=== PATIENT | female | born 1975 | race Caucasian/White ===

== ENCOUNTER 2018-10-10 22:17 | Emergency (ER) | payer BC, MEDICARE ==
[~2018-10-10] VITALS: Ht 162.6 cm; Wt 61.1 kg
[2018-10-10] MEDS ORDERED: DEXT20CA4 PO (22:41)
[2018-10-10] MEDS ORDERED: VENL150C58 PO (22:41)
[2018-10-10] MEDS ORDERED: RIZA10TA28 PO (22:41)
--- NOTE | 2018-10-10 22:48 | NUR ---
Received report from MARILYN Vasquez. Patient placed in bed 24. 18 even respirations on room air. Appears to be in distress, possibly from being intoxicated. Noticed an open wound to right arch of the foot. Will treat it once patient is back to bed from bathroom. Explained admission process; patient verbalized understanding. Will continue to monitor.
[2018-10-10 23:20] LABS: URINE HCG NEGATIVE (NEG)
[2018-10-10 23:21] LABS: BASOPHILS % (AUTO) 0.2 % (0-1); EOSINOPHILS % (AUTO) 0 % (0-6); HEMATOCRIT 36.9 % (35.0-45.0); HEMOGLOBIN 12.5 g/dl (12.0-16.0); LYMPHOCYTES # (AUTO) 1.7 X10'3 (1.1-4.8); LYMPHOCYTES % (AUTO) 13.8 % (21-51); MEAN CORPUSCULAR HEMOGLOBIN 31.4 PG (27.0-31.0); MEAN CORPUSCULAR HGB CONC 33.7 g/dL (33.0-36.5); MEAN CORPUSCULAR VOLUME 93.2 FL (78-98); MONOCYTES # (AUTO) 0.5 X10'3 (0-0.9); MONOCYTES % (AUTO) 3.8 % (2-12); NEUTROPHILS # (AUTO) 10.1 X10'3 (1.8-7.7); NEUTROPHILS % (AUTO) 82.2 % (42-75); PLATELET COUNT 429 X10'3 (140-440); RED BLOOD COUNT 3.97 X10'6 (4.20-5.60); RED CELL DISTRIBUTION WIDTH 12.9 % (11.5-14.5); WHITE BLOOD COUNT 12.3 X10'3 (4.5-11.0)
[2018-10-10 23:21] LABS: CLARITY,URINE CLEAR (Clear); COLOR,URINE STRAW (Yellow); GLUCOSE, URINE NEGATIVE (Neg); KETONES,URINE NEGATIVE (Neg); LEUKOCYTE ESTERASE ,URINE NEGATIVE (Neg); NITRITES, URINE NEGATIVE (Neg); OCCULT BLOOD,URINE NEGATIVE (Neg); PROTEIN,URINE NEGATIVE (Neg); UROBILINOGEN,URINE 0.2 E.U/dL (0.2-1.0)
[2018-10-10 23:23] LABS: UA COLLECTION TYPE CLN CATCH MIDSTREAM
[2018-10-10 23:32] LABS: ALANINE AMINOTRANSFERASE 45 U/L (12-78); ALBUMIN/GLOBULIN RATIO 1.1 (1.1-1.5); ALKALINE PHOSPHATASE 57 IU/L (46-116); ANION GAP 6 (8-16); ASPARTATE AMINO TRANSFERASE 37 U/L (10-37); BILIRUBIN,TOTAL 0.2 MG/DL (0.1-1.0); BLOOD UREA NITROGEN 15 MG/DL (7-18); BUN/CREATININE RATIO 18.3 (6.6-38.0); CALCIUM 8.5 MG/DL (8.5-10.1); CHLORIDE 112 MMOL/L (99-107); CREATININE 0.82 MG/DL (0.40-0.90); GLUCOSE 101 MG/DL (70-104); SODIUM 146 MMOL/L (135-145); TOTAL CARBON DIOXIDE 27.6 MMOL/L (24-32); TOTAL PROTEIN 7.5 G/DL (6.4-8.2); eGFR 76 ML/MIN
[2018-10-10 23:34] LABS: URINE AMPHETAMINE SCREEN NEGATIVE (Neg); URINE BARBITUATE SCREEN NEGATIVE (Neg); URINE BENZODIAZEPINES SCREEN NEGATIVE (Neg); URINE CANNABINOID SCREEN NEGATIVE (Neg); URINE COCAINE SCREEN NEGATIVE (Neg); URINE METHADONE SCREEN NEGATIVE (Neg); URINE OPIATE SCREEN NEGATIVE (Neg); URINE PHENCYCLIDINE SCREEN NEGATIVE (Neg)
[2018-10-10 23:41] LABS: ETHANOL 0.244 GM/DL (0.0-0.010)
[2018-10-10 23:44] LABS: ACETAMINOPHEN < 2.0 UG/ML (10-30)
--- NOTE | 2018-10-11 00:20 | NUR ---
CLAUS Chavez examined wound and verbalized to irrigate it with 500 mL of sterile water, obtain x-ray, then apply xeroform, 4x4s and cover with coban. Now pictures taken; placed in chart. Will perform wound care per orders.
--- NOTE | 2018-10-11 00:43 | NUR ---
Xeroform, 4x4 gauze and coban dressing applied to open wounds on bottom of right foot.
--- NOTE | 2018-10-11 00:48 | NUR ---
Pt became agitated about "bloody spot" on pillow case. Began pacing around, security notified and arrived promptly. Situation deescalated by replacing linen and asking Pt to return to bed. Pt agreed to return to bed. Sitting up in bed facing wall, security still present on standby.
--- NOTE | 2018-10-11 01:18 | NUR ---
Pt up to bathroom to perform oral hygiene tasks. No assistance required.
--- NOTE | 2018-10-11 01:21 | NUR ---
Packet faxed to [facility]. Unable to confirm receipt of packet as out of business hours.
[2018-10-11] MEDS ORDERED: CIPR7.5D LEFT EAR (01:47)
[2018-10-11] MEDS ORDERED: AMOX-580 PO (01:47)
[2018-10-11] MEDS ORDERED: LEVO50TA8 PO (01:47)
[2018-10-11] MEDS ORDERED: ATOR20TA66 PO (01:47)
[2018-10-11] MEDS ORDERED: TRAZ-219 PO (01:47)
[2018-10-11] MEDS ORDERED: NORT50CA PO (01:47)
[2018-10-11] MEDS ORDERED: PANT40TA4 PO (01:47)
[2018-10-11] MEDS ORDERED: LORazepam 1 MG tablet PO ONE (01:50)
[2018-10-11] MEDS ORDERED: SUMAtriptan succ. 6 MG/0.5ml vial SQ ONE (02:55)
[2018-10-11 05:30] VITALS: BP 125/69
--- NOTE | 2018-10-11 05:53 | NUR ---
Patient up to bathroom. Dry-heaving at the moment. Cool wash rag given
[2018-10-11] MEDS ORDERED: venlafaxine XR 75mg capsule (Q24H) PO SCH (08:00)
[2018-10-11] MEDS ORDERED: DEXAMETH LEFT EAR SCH (08:00)
[2018-10-11] MEDS: CIPROFLOXACIN HCL LEFT EAR SCH ×3 (08:00→12:59)
[2018-10-11] MEDS ORDERED: pantoprazole 40mg Tablet.DR PO SCH (08:00)
[2018-10-11] MEDS ORDERED: levoTHYROXINE 25mcg tablet PO SCH (08:00)
[2018-10-11] MEDS ORDERED: nortriptyline 25mg capsule PO SCH (08:00)
[2018-10-11] MEDS ORDERED: CIPROFLOXACIN HCL LEFT EAR SCH (08:00)
[2018-10-11] MEDS: DEXAMETH LEFT EAR SCH ×3 (08:00→12:59)
--- NOTE | 2018-10-11 09:00 | NUR ---
BREAK NURSE: PT RESTING WITH EYES CLOSED RR EQUAL AND UNLABORED
[2018-10-11] MEDS ORDERED: amox tr/potassium clavulanate 875/125mg TAB PO SCH (10:00)
--- NOTE | 2018-10-11 12:59 | NUR ---
INFORMED PT THAT IT WAS TIME FOR HER ABX EAR GTTS. PT STATES THAT SHE SAW DR ROSE AND WAS TOLD TO STOP THE ABX EAR GTTS AND TO CONTINUE TAKING THE AMOXICILLIN. PT REFUSED THE ABX EAR GTTS AT THIS TIME
[2018-10-11] MEDS ORDERED: traZODone 50mg tablet PO SCH (21:00)
== END 2018-10-11 14:07 | disposition home or self-care (01) ==
LOC: ER 22:17
DX: S91.331A Puncture wound without foreign body, right foot, initial encounter (principal); E78.00 Pure hypercholesterolemia, unspecified; I10 Essential (primary) hypertension; E03.9 Hypothyroidism, unspecified; F41.9 Anxiety disorder, unspecified; F32.9 Major depressive disorder, single episode, unspecified; F10.99 Alcohol use, unspecified with unspecified alcohol-induced disorder; Z88.1 Allergy status to other antibiotic agents; Z79.899 Other long term (current) drug therapy; X83.8XXA Intentional self-harm by other specified means, initial encounter; Y93.89 Activity, other specified; Y92.89 Other specified places as the place of occurrence of the external cause; Y99.8 Other external cause status; Y90.0 Blood alcohol level of less than 20 mg/100 ml
CPT/HCPCS: 36415; 73620; 80053; 80178; 80305; 80320; 80329; 81003; 81025; 84443; 85025; 96372; 99285; J3030